=== PATIENT | female | born 1970 | race Caucasian/White ===

== ENCOUNTER → 2016-09-13 | Outpatient (CLI) | payer OTHER ==
--- NOTE | 2016-09-13 17:07 | BD ---
EXAMINATION TYPE: MG DEXA axial skeleton. DATE OF EXAM: 09/13/2016 8:21 AM CLINICAL HISTORY: 46-year-old female long-term current use of hormonal contraceptives. : no Height: 132 Weight: 64.5 FRAX RISK QUESTIONS: Alcohol (3 or more units per day): no Family History (Parent hip fracture): no Glucocorticoids (More than 3mos): no (Ex: prednisone, prednisolone, methylprednisolone, dexamethasone, and hydrocortisone). History of Fracture in Adulthood: no Secondary Osteoporosis: 1. Type 1 Diabetes: no 2. Hyperthyroidism: no 3. Menopause before 45: n/a 4. Malnutrition: no 5. Chronic liver disease: no Rheumatoid Arthritis: no Current Tobacco Use: no RISK FACTORS HISTORY OF: Family History of Osteoporosis: unsure Drink Alcohol: no Active: yes Diet low in dairy products/other sources of calcium: no Postmenopausal woman: no If Premenopausal, do you have irregular periods: no Take estrogen and/or progesterone medications: yes, Depo shots How long: over 15 years Lost more than 2 inches in height since high school: no Frequent falls: no Poor Health: no Hyperparathyroidism: no Adrenal Insufficiency: no MEDICATIONS: Prednisone or other steroids: no Thyroid Medications: no Osteoporosis Medications: no EXAM MEASUREMENTS: Bone mineral densitometry was performed using the [employer]. Bone mineral density as measured about the Lumbar spine is: ----- L1-L4(G/cm2): 1.209 T Score Values are as follows: ----- L2: -0.5 ----- L3: 0.8 ----- L4: 0.6 ----- L1-L4: 0.2 Bone mineral density has: Decreased -0.3% since study of: 03/18/2014 Bone mineral density about the R hip (g/cm2): 1.134 Bone mineral density about the L hip (g/cm2): 1.090 T Score values are as follows: -----R Neck: 0.7 -----L Neck: 0.4 -----R Intertrochanter: 1.2 -----L Intertrochanter: 1.4 Bone mineral density has: Increased 0.8% since study of: 03/18/2014 IMPRESSION: Normal bone mineral density as measured in the lumbar spine and both hips. Rescreen in 5 years. NOTE: T-SCORE=SD OF THE YOUNG ADULT MEAN.
== END | disposition home or self-care (01) ==
LOC: RADBDWWP 07:32
PROVIDERS: ATTEND Family Medicine
DX: Z09 Encounter for follow-up examination after completed treatment for conditions other than malignant neoplasm (principal); Z79.3 Long term (current) use of hormonal contraceptives
CPT/HCPCS: 77080

== ENCOUNTER → 2016-09-13 | Outpatient (CLI) | payer OTHER ==
--- NOTE | 2016-09-14 11:36 | MM ---
Reason for exam: screening (asymptomatic). Last mammogram was performed 2 years and 7 months ago. History: Benign US breast aspiration ea add RT of the right breast, March 06, 2014. Benign US breast aspiration single LT of the left breast, March 06, 2014. Benign US breast aspiration single RT of the right breast, March 06, 2014. Taking hormonal contraceptives. Physical Findings: A clinical breast exam by your physician is recommended on an annual basis and results should be correlated with mammographic findings. MG Screening Mammo w CAD Bilateral CC and MLO view(s) were taken. Prior study comparison: February 17, 2014, bilateral MG screening mammo w CAD. September 23, 2010, bilateral digital screening mammo w/CAD. The breast tissue is extremely dense which could obscure a lesion on mammography. Finding: There are typically benign round, grouped/clustered calcifications in both breasts. There is a chronic nodularity bilaterally. New finding since February 17, 2014 and September 23, 2010. ASSESSMENT: Incomplete: need additional imaging evaluation, BI-RAD 0 RECOMMENDATION: Ultrasound of both breasts. [facility] will attempt to contact patient to return for ultrasound.
== END | disposition home or self-care (01) ==
LOC: RADMAMWWP 07:39
PROVIDERS: ATTEND Internal Medicine
DX: Z12.31 Encounter for screening mammogram for malignant neoplasm of breast (principal)
CPT/HCPCS: 77080

== ENCOUNTER → 2016-09-21 | Outpatient (CLI) | payer OTHER ==
--- NOTE | 2016-09-22 09:18 | USB ---
Reason for exam: additional evaluation requested from abnormal screening. History: Benign US breast aspiration ea add RT of the right breast, March 06, 2014. Benign US breast aspiration single LT of the left breast, March 06, 2014. Benign US breast aspiration single RT of the right breast, March 06, 2014. Taking hormonal contraceptives. Physical Findings: Nurse Summary: right breast 0.5cm movable palpable, left breast 1cm movable palpable (nurse dw). US Breast Workup Limited SHENA Right breast ultrasound demonstrates several cystic lesions measuring 0.58 x 0.52 x 0.50cm at 6 o'clock, 1.7 x 1.2 x 1.6cm at 8 o'clock, 1.3 x 0.75 x 1.0cm at 8 o'clock, 0.64 x 0.57 x 0.62cm at 10 o'clock and 0.67 x 0.43 x 0.67cm at 10 o'clock. Left breast ultrasound demonstrates several cystic lesions measuring 1.0 x 0.59 x 1.0cm at 1 o'clock, 0.87 x 0.66 x 0.83cm at 1 o'clock, 0.68 x 0.51 x 0.6cm at 3 o'clock, 0.53 x 0.47 x 0.5cm at 3 o'clock and 0.88 x 0.37 x 0.30cm at 5 o'clock. These results were verbally communicated with the patient and result sheet given to the patient on 09/21/16. ASSESSMENT: Benign, BI-RAD 2 RECOMMENDATION: Return to routine screening mammogram schedule for both breasts.
== END | disposition home or self-care (01) ==
LOC: RADUSWWP 15:20
PROVIDERS: ATTEND Internal Medicine
DX: R92.8 Other abnormal and inconclusive findings on diagnostic imaging of breast (principal)

== ENCOUNTER → 2021-09-09 | Outpatient (CLI) | payer OTHER ==
--- NOTE | 2021-09-09 16:51 | XR ---
EXAMINATION TYPE: XR cervical spine comp DATE OF EXAM: 09/09/2021 COMPARISON: NONE HISTORY: Neck pain TECHNIQUE: 5 view FINDINGS: Cervical vertebra have fairly normal alignment. There is minimal anterior spurring at C5-6. Posterior elements are intact. Neural foramina are fairly well-maintained. Atlantoaxial facet joint is normal. There are no cervical ribs. IMPRESSION: Cervical spine appears fairly normal for age. No fracture.
--- NOTE | 2021-09-09 16:52 | XR ---
EXAMINATION TYPE: XR shoulder complete RT DATE OF EXAM: 09/09/2021 COMPARISON: NONE HISTORY: Neck pain TECHNIQUE: 3 views FINDINGS: I see no fracture nor dislocation. Joint spaces are fairly normal. AC joint is intact. IMPRESSION: Negative right shoulder exam.
== END | disposition home or self-care (01) ==
LOC: RADXRMAIN 16:14
PROVIDERS: ATTEND Emergency Medicine
DX: S16.1XXA Strain of muscle, fascia and tendon at neck level, initial encounter (principal); S46.911A Strain of unspecified muscle, fascia and tendon at shoulder and upper arm level, right arm, initial encounter; X58.XXXA Exposure to other specified factors, initial encounter
CPT/HCPCS: 72050

== ENCOUNTER → 2021-10-05 | Outpatient (CLI) | payer OTHER ==
--- NOTE | 2021-10-05 10:35 | MR ---
EXAMINATION TYPE: MR shoulder RT wo con DATE OF EXAM: 10/05/2021 COMPARISON: Plain film 09/21/2021 HISTORY: Rt shoulder pain due to an injury in Aug 2021-Unable to raise arm above her head TECHNIQUE: Multiplanar, multisequence imaging of the right shoulder is performed without contrast. FINDINGS: Rotator Cuff: There is some increased signal within the rotator cuff, there is no tru rotator cuff tear Acromioclavicular Joint: Acromioclavicular joint arthropathy is present, there is mass effect on the musculotendinous junction of supraspinatus, distal acromial spur is noted, distal acromion is downtur concepcion Glenohumeral Joint: Intact Labrum: The labrum appears grossly intact given limitation of non-arthrogram study. Biceps Tendon: The long head of biceps is in normal location within bicipital groove. Bone marrow signal: Some pseudocysts are present within the humeral head Other: There is some minimal fluid signal in the subacromial subdeltoid bursa. IMPRESSION: Correlate for impingement with tendinosis. No tru rotator cuff tear evident. Acromioclavicular join t arthropathy.
== END | disposition home or self-care (01) ==
LOC: RADMRIMAIN 08:31
PROVIDERS: ATTEND Orthopaedic Surgery
DX: M12.811 Other specific arthropathies, not elsewhere classified, right shoulder (principal)